=== PATIENT | female | born 1955 | race Caucasian/White ===

== ENCOUNTER 2020-12-14 13:01 | Outpatient (RCR) | payer MEDICAID, SELFPAY | END 2020-12-14 23:59 | disposition home or self-care (01) | LOC: ANHAUDIO 13:01 | PROVIDERS: PCP Family Medicine; Visit Provider Family Medicine | DX: Z46.1 Encounter for fitting and adjustment of hearing aid (principal) | CPT/HCPCS: 99199; V5014 ==

== ENCOUNTER 2021-05-02 10:32 | Outpatient (CLI) | payer MEDICARE, MEDICAID, SELFPAY ==
--- NOTE | ~2021-05-02 | XR_ITS ---
EXAMINATION: XR chest 2V DATE: 05/02/2021 11:28 INDICATION: Chronic obstructive pulmonary disease. Congestive heart failure. Edema. TECHNIQUE: Frontal and lateral views of the chest were obtained. COMPARISON: None. FINDINGS: There is a mass at right lung apex. No pleural effusion or pneumothorax. The heart size is normal. There is height loss of multiple midthoracic vertebral bodies, likely chronic. IMPRESSION: 1. Mass at right lung apex suspicious for primary bronchogenic carcinoma. Chest CT with contrast is r ecommended. Reviewed, dictated and finalized at location A. IMPRESSION: 1. Mass at right lung apex suspicious for primary bronchogenic carcinoma. Chest CT with contrast is recommended.
--- NOTE | 2021-05-02 11:05 | ECG_ITS ---
Measurements Intervals [place] Rate: 106 P: 29 NV: 132 QRS: 83 QRSD: 94 T: 47 QT: 359 QTc: 479 Interpretive Statements SINUS TACHYCARDIA DELAYED PRECORDIAL R/S TRANSITION MINIMAL Q WAVES- INF/LAT LEADS ABNORMAL ECG Electronically Signed On 05-02-2021 11:54:42 CDT by Michael Austin D.O.
== END 2021-05-02 10:33 | disposition home or self-care (01) ==
PROVIDERS: PCP Internal Medicine; Visit Provider Internal Medicine
DX: J44.9 Chronic obstructive pulmonary disease, unspecified (principal); I50.9 Heart failure, unspecified; R60.9 Edema, unspecified
CPT/HCPCS: 71046; 93005

== ENCOUNTER 2021-05-09 06:58 | Outpatient (CLI) | payer MEDICARE, MEDICAID, SELFPAY ==
--- NOTE | ~2021-05-09 | CT_ITS ---
EXAMINATION: CT diagnostic chest w con DATE: 05/09/2021 08:42 INDICATION: Right lung mass TECHNIQUE: Transaxial computed tomographic images of the chest were obtained after the administration of 75 cc of Omnipaque 350 intravenous contrast. The dose-length product (DLP) was 232.21 mGy-cm. Ite rative reconstruction was used. COMPARISON: None FINDINGS: There is mild emphysema. There is a 6.5 x 2.8 cm mass of the right upper lobe with air bron chograms and associated right upper lobe volume loss. There is a 6 mm subpleural nodule of the left l ower lobe on image 94. There is no pleural effusion or pneumothorax. The heart size is normal. There is right hilar lymphadenopathy. There are compression fractures of the T5, T6, and T8 vertebral gonzalo s. IMPRESSION: 1. Right upper lobe mass concerning for primary bronchogenic carcinoma. Biopsy is recommended. Reviewed, dictated and finalized at location B.
[2021-05-09 07:22] LABS: Estimated Glomerular Filt Rate 44
--- NOTE | 2021-05-09 08:25 | ECHO_ITS ---
Patient Info Name: Betzy Gandhi Age: 66 years : 1955 Gender: Female Ht: 64 in Wt: 185 lbs BSA: 1.98 m2 BP: 159 / 74 mmHg Exam Date: 05/09/2021 7:32 AM Exam Location: [facility] EM[facility] Patient Status: Outpatient Admit Date: 05/09/2021 Staff Ordering Physician: Aric Medina MD Fermenting Cellar Dropper: Coleman Luo, YURIDIA, RT Attending Provider: Aric Medina MD Exam Type: CA echo doppler color flow Study Info Indications R60.0 - Localized edema I50.9 - Heart failure, unspecified Complete two-dimensional, color flow and Doppler transthoracic echocardiogram is performed. Strain analysis performed. Summary 1. Complete two-dimensional, color flow and Doppler transthoracic echocardiogram is performed. 2. Left ventricular chamber dimension is moderately enlarged. 3. Left ventricular systolic function is moderately reduced, estimated at 40-45%. 4. The left ventricular diastolic function is abnormal. 5. E/e' 13 is mildly elevated. 6. Global longitudinal strain is abnormal at -13.5%. 7. Left atrial chamber dimension is mildly enlarged. 8. The mitral valve has moderately calcified annulus. 9. There is mild to moderate mitral valve regurgitation. Left Ventricle Global longitudinal strain is abnormal at -13.5%. Left ventricular chamber dimension is moderately enlarged. Left ventricular systolic function is moderately reduced, estimated at 40-45%. The left ventricular diastolic function is abnormal. E/e' 13 is mildly elevated. Right Ventricle Right ventricular systolic function is normal and with normal TAPSE 2.7 cm. Right ventricular chamber dimension is normal. Left Atria Left atrial chamber dimension is mildly enlarged. Right Atria Right atrial chamber dimension is normal. Aortic Valve The aortic valve is trileaflet. There is no aortic valve stenosis. There is no aortic valve regurgitation. Pulmonic Valve There is no pulmonic regurgitation. Mitral Valve The mitral valve has moderately calcified annulus. There is no mitral valve stenosis. There is mild to moderate mitral valve regurgitation. Tricuspid Valve There is no tricuspid valve regurgitation. Pericardium/Pleural There is no pericardial effusion. Inferior Vena Cava Normal inferior vena cava with >50% collapse upon inspiration consistent with normal right atrial pressure, 5 mmHg. Aorta The aortic root size at the sinus of Valsalva is normal. Left Ventricular Outflow Tract Name Value Normal LVOT 2D LVOT Diameter 2.0 cm LVOT Doppler LVOT Peak Velocity 122 cm/s LVOT Peak Gradient 6 mmHg LVOT Mean Gradient 3 mmHg LVOT VTI 25 cm LVOT VTI/AV VTI Ratio 0.9 LVOT Stroke Volume 81 ml Mitral Valve Name Value Normal MV 2D/MM
== END 2021-05-09 06:59 | disposition home or self-care (01) ==
PROVIDERS: PCP Internal Medicine; Visit Provider Internal Medicine
DX: J44.9 Chronic obstructive pulmonary disease, unspecified (principal); I50.9 Heart failure, unspecified; R60.9 Edema, unspecified; R91.8 Other nonspecific abnormal finding of lung field
CPT/HCPCS: 71260; 93306; Q9967

== ENCOUNTER 2021-05-24 09:55 | Outpatient (CLI) | payer MEDICARE, MEDICAID, SELFPAY ==
--- NOTE | ~2021-05-24 | US_ITS ---
EXAMINATION: US venous doppler [facility] DATE: 05/24/2021 10:19 INDICATION: Lower limb localized edema. TECHNIQUE: Grayscale ultrasound images without and with compression and Doppler ultrasound images of the bilateral lower extremity veins were obtained. COMPARISON: None. FINDINGS: The visualized portions of right common femoral vein, profunda (deep) femoral vein, femoral vein, pop liteal vein, peroneal veins, posterior tibial veins, and greater saphenous vein outflow are patent. The visualized portions of left common femoral vein, profunda femoral vein, femoral vein, popliteal v ein, peroneal veins, posterior tibial veins, and greater saphenous vein outflow are patent. IMPRESSION: 1. No deep venous thrombosis. Reviewed, dictated and finalized at location A. RINTENDENT CIRCUS
== END 2021-05-24 09:56 | disposition home or self-care (01) ==
LOC: CHSIMG 09:58
PROVIDERS: PCP Internal Medicine; Visit Provider Internal Medicine Cardiovascular Disease
DX: R60.0 Localized edema (principal)
CPT/HCPCS: 93970

== ENCOUNTER 2021-05-25 07:52 | Emergency (ER) | payer MEDICARE, MEDICAID, SELFPAY ==
--- NOTE | ~2021-05-25 | XR_ITS ---
EXAMINATION: XR chest 1V portable EXAM DATE: 05/25/2021 08:47 INDICATION: SOB/HX OF COPD AND CHF . TECHNIQUE: Portable AP frontal chest x-ray was obtained. Comparison is made to prior examination from 05/02/2021. FINDINGS: There is improvement in the right upper lobe segmental wedge-shaped airspace disease seen o n prior study which was probably pneumonia. There is still some opacity in this region, possibly an u nderlying cancer. The lungs are otherwise clear. There are no pleural effusions. The cardiomediasti nal silhouette is within normal limits. There is no pneumothorax suspected. The bones and soft tiss ues are unremarkable. IMPRESSION: Improvement in previously seen right upper lobe airspace disease, with persistent smaller opacity which could be underlying cancer or postinfectious residual. A follow-up nonemergent chest C T without contrast in 2 weeks could be obtained to compare to last month's chest CT and determine con tinued improvement versus need for biopsy. Reviewed, dictated and finalized at location A. IO ARTIST IMPRESSION: Improvement in previously seen right upper lobe airspace disease, w ith persistent smaller opacity which could be underlying cancer or postinfectio us residual. A follow-up nonemergent chest CT without contrast in 2 weeks could be obtained to compare to last month's chest CT and determine continued improv ement versus need for biopsy.
--- NOTE | ~2021-05-25 | CT_ITS ---
EXAMINATION: CTA chest PE protocol EXAM DATE: 05/25/2021 10:42 INDICATION: Elevated D-Dimer, Cough. COVID positive. TECHNIQUE: Spiral CTA of the chest (pulmonary arteries) was performed with 100 cc Omnipaque 350 intr avenous contrast injection. Images were acquired during the pulmonary arterial phase. Coronal maxi mum intensity projection 3D-reconstructions were created by the technologist on dedicated workstation . Axial, coronal and sagittal reformatted images were reviewed. The dose-length product (DLP) for t his examination was 750.47 mGy-cm. The exposure was tailored according to patient size (auto mA exp osure control), and iterative reconstruction (ASIR) was used as additional dose reduction technique. Comparison is made to prior examination from 05/09/2021. FINDINGS: There are no pulmonary emboli in the 1st through 3rd order (central and interlobar) pulmon bernice arteries. Some loss of attenuation in the segmental pulmonary arteries due to respiratory motion , but no intraluminal filling defects suspected. No thoracic aortic dissection. There is about 50% decrease in quantity of right upper lobe apical airspace disease compared to previ ous examination, could be pneumonia, postinfectious or infarction but underlying cancer is also possi ble. Mild to moderate emphysema. There are no pleural or pericardial effusions. Tracheobronchial t ree is patent. There is no mediastinal, hilar or axillary lymphadenopathy. There is no pneumothor ax. Heart normal in size. There is mild coronary arterial calcification, arterial sclerosis. Upp er abdomen is unremarkable. No osteoblastic or osteolytic lesions identified. Mild mid thoracic com pression fractures which appear chronic. IMPRESSION: 1. No pulmonary emboli. 2. Improvement in the right upper lobe airspace disease. A follow-up chest CT is recommended in one month to ensure continued improvement or determine need for biopsy. 3. Mild to moderate emphysema. Reviewed, dictated and finalized at location A. OGICAL TECHNICIAN IMPRESSION: 1. No pulmonary emboli. 2. Improvement in the right upper lobe airspace disease. A follow-up chest CT is recommended in one month to ensure continued improvement or determine need f or biopsy. 3. Mild to moderate emphysema.
[2021-05-25 08:12] VITALS: BP 129/63; PULSE 100; RESP 24; TEMP 37.1; O2SAT 99
--- NOTE | 2021-05-25 08:18 | ED.GENADULT ---
HPI - General Adult General Chief complaint: Upper Respiratory Infection Stated complaint: cough,fever Time Seen by Provider: 05/25/21 08:18 Source: patient Mode of arrival: ambulatory Limitations: no limitations History of Present Illness HPI narrative: 66-year-old female, 50 pack year smoking history with chronic respiratory failure home oxygen 2 liters/minute, COPD, MIGUEL on CPAP, CHF with an EF of 45%, 6.5X2.8 persistent right upper lobe mass with cavitation with hilar lymphadenopathy which failed to resolve in spite of 2 courses of antibiotics Zithromax and Levaquin is awaiting lung biopsy. Her sputum tested positive for MRSA pneumonia March of 2021. she was also noted to have positive nasal MRSA. Sputum was negative for acid-fast for mycobacterium, Aspergillus, blasto, coccidioidomycosis, Histoplasma. She also has a history of CKD with a baseline creatinine of 1.4, psoriasis and GERD. She had anemia with an H&H of 7.3/ 23.5 with normal B12 and folate and decreased iron saturation suggestive of fine deficiency anemia. She presents to the ER with -- nonproductive cough for the past few days. No hemoptysis noted. -- Chronic shortness of breath worse with exertion. -- low-grade Fever the past 2 days -- generalized headache. Onset (ago): day(s) ( For the past 3-4 days.) Location: head Radiation: non-radiation Severity: moderate Quality: aching Pain Consistency: constant Relieving factors: none Exacerbating factors: none Treatments prior to arrival: none Related Data Home Medications Medication Instructions Recorded Confirmed atorvastatin 20 mg tablet 20 mg PO DAILY 05/16/21 05/25/21 bupropion HCl 150 mg 24 hr tablet, 150 mg PO QAM 05/16/21 05/25/21 extended release cetirizine 10 mg tablet 10 mg PO DAILY PRN 05/16/21 05/25/21 cholecalciferol (vitamin D3) 10 10 mcg PO DAILY 05/16/21 05/25/21 mcg (400 unit) capsule ferrous sulfate 325 mg (65 mg 325 mg PO DAILY 05/16/21 05/25/21 iron) tablet omeprazole 40 mg capsule,delayed 40 mg PO BID 05/16/21 05/25/21 release potassium chloride 20 mEq 20 meq PO DAILY 05/16/21 05/25/21 tablet,extended release triamcinolone acetonide 0.1 % 1 applic TOPICAL BID 05/16/21 05/25/21 topical cream diphenhydramine HCl 25 mg capsule 25 mg PO QHS 05/20/21 05/25/21 furosemide 20 mg tablet 40 mg PO QAM tablet 05/20/21 05/25/21 lactobacillus combination no.9 4 4,000 mmu cells PO DAILY 05/20/21 05/25/21 billion cell capsule mecobalamin (vitamin B12) 1,000 1,000 mcg SUBLINGUAL DAILY 05/20/21 05/25/21 mcg disintegrating tablet,sublingual pyridoxine (vitamin B6) 100 mg 100 mg PO DAILY 05/20/21 05/25/21 tablet albuterol sulfate [Ventolin HFA] 2 puff INHALATION Q4H 05/25/21 05/25/21 Allergies Allergy/AdvReac Type Severity Reaction Status Date / Time telithromycin [From Ketek] Allergy Unknown Unknown Verified 05/25/21 08:16 Tetanus Vaccines and Toxoid Allergy Unknown Unknown Verified 05/25/21 08:16 montelukast [From Singulair] AdvReac Unknown Unknown Verified 05/25/21 08:16 Review of Systems Review of Systems: All systems reviewed & are unremarkable except as noted in HPI and below Constitutional: Constitutional: Reports as per HPI Eyes: Eyes: Reports as per HPI ENT: Reports system reviewed and no additional complaints, except as documented Cardiovascular: Cardiovascular: Reports as per HPI and Reports leg edema Respiratory: Respiratory: Reports dyspnea on exertion Gastrointestinal: Gastrointestinal: Reports no additional gastrointestinal complaints Genitourinary: Genitourinary: Reports no additional female genitourinary complaints Musculoskeletal: Musculoskeletal: Reports no additional musculoskeletal complaints Integumentary/Breasts: Comments: History of psoriasis Neurologic: Reports headache(s) Psychiatric: Psychiatric: Reports no additional psychiatric complaints Endocrine: Endocrine: Reports no additional endocrine complaints Hematologic/Lym
--- NOTE | 2021-05-25 08:31 | ECG_ITS ---
Measurements Intervals [place] Rate: 94 P: 50 NC: 137 QRS: 65 QRSD: 94 T: 57 QT: 356 QTc: 447 Interpretive Statements SINUS RHYTHM VENTRICULAR PREMATURE COMPLEX BASELINE ARTIFACT- I, II, III, AVR, AVL, AVF, V1, V6 BORDERLINE ECG Electronically Signed On 05-26-2021 20:26:53 FISH FILLETER by Michael Austin D.O.
[2021-05-25 09:14] LABS: Basophils Absolute Auto 0.02 K/mm3 (0.00-0.10); Basophils Percent Auto 0.5 % (0.0-1.0); Eosinophils Absolute Auto 0.03 K/mm3 (0.02-0.50); Eosinophils Percent Auto 0.7 % (1.0-6.0); Hematocrit 28.1 % (35.0-42.0); Hemoglobin 8.6 g/dL (11.7-13.8); Immature Granulocyte Absolute 0.01 K/mm3 (0.00-0.00); Immature Granulocyte Percent A 0.2 % (0.0-0.0); Mean Corpuscular HGB Conc 30.6 g/dL (32.0-36.0); Mean Corpuscular Hemoglobin 31.6 pg (27.0-31.0); Mean Corpuscular Volume 103.3 fL (78.0-102.0); Mean Platelet Volume 9.2 fl (9.2-11.8); Monocytes Absolute Auto 0.39 K/mm3 (0.10-0.90); Monocytes Percent Auto 9.7 % (2.0-11.0); Neutrophils Absolute Auto 2.8 K/mm3 (1.7-7.2); Neutrophils Percent Auto 68.9 % (50.0-70.0); Platelet Count Result 145 K/mm3 (150-420); Red Blood Count 2.72 M/mm3 (4.20-5.40); Red Cell Distribution Width 14.3 % (11.6-14.4)
[2021-05-25 09:30] LABS: D Dimer 0.92 mg/L (0.19-0.50)
--- NOTE | 2021-05-25 09:31 | PC.NURSE ---
Lab called with elevated D-Dimer of 0.92. Dr. Hope notified.
[2021-05-25 09:38] LABS: Alanine Aminotransferase 22 U/L (14-59); Albumin Level 3.3 g/dL (3.4-5.0); Alkaline Phosphatase 130 U/L (46-116); Anion Gap 12 mmol/L (8-16); Aspartate Amino Transferase 21 U/L (15-37); Bilirubin,Total 0.3 mg/dL (0.00-1.00); Blood Urea Nitrogen 12 mg/dL (7-18); Calcium 8.1 mg/dL (8.5-10.1); Carbon Dioxide 24 mmol/L (21-32); Chloride 105 mmol/L (98-108); Estimated CRCL calculation 34 ml/min; Estimated Glomerular Filt Rate 34; Glucose 93 mg/dL (70-99); Osmolality Calculated 291 mOsm/kg (285-295); Potassium 3.7 mmol/L (3.5-5.1); Sodium 141 mmol/L (136-145); Total Protein 6.2 g/dL (6.4-8.2); Troponin I 12.7 ng/L (0.00-60.4)
[2021-05-25] MEDS: SODIUM CHLORIDE 0.9% IV 500 ML (09:40)
[2021-05-25 09:47] LABS: Influenza A QL RT-PCR Negative (Negative); Influenza B QL RT-PCR Negative (Negative); RSV RNA, RT-PCR Negative (Negative); SARS-CoV-2 RNA PCR Positive (Negative)
[2021-05-25 09:51] LABS: NT Pro B Type Natriuretic Pept 2272 pg/mL (0-125)
[2021-05-25 09:52] VITALS: PULSE 98; RESP 24; TEMP 37; O2SAT 99
--- NOTE | 2021-05-25 09:52 | PC.NURSE ---
Pt c/o feeling cold and concerned for fever. Temperature taken and noted to be 98.6. Pt given warm blanket.
[2021-05-25 11:52] VITALS: BP 128/51; PULSE 109; RESP 20; O2SAT 100
== END 2021-05-25 11:53 | disposition home or self-care (01) ==
PROVIDERS: Emergency Provider Internal Medicine Critical Care Medicine; PCP Internal Medicine
DX: R91.8 Other nonspecific abnormal finding of lung field (principal); U07.1 COVID-19; J43.9 Emphysema, unspecified; I50.42 Chronic combined systolic (congestive) and diastolic (congestive) heart failure; D50.9 Iron deficiency anemia, unspecified
CPT/HCPCS: 36415; 71045; 71275; 80053; 83880; 84145; 84484; 85025; 85380; 87502; 93005; 96360; 99283; 99284; C9803; J7040; Q9967; U0003; U0005